=== PATIENT | male | born 1995 | race Caucasian/White ===

== ENCOUNTER 2023-02-19 11:49 | Emergency (ER) | payer OTHER, SELFPAY ==
--- NOTE | ~2023-02-19 | CT_ITS ---
EXAMINATION: CT brain wo con DATE: 02/19/2023 13:48 INDICATION: Recent head injury. Headache. Dizziness. TECHNIQUE: Computed tomography (CT) of the head was performed without intravenous contrast. The mA wa s adjusted according to patient size. Iterative reconstruction technique was employed. Exam dose: 68 1.00 mGy-cm total exam DLP. COMPARISON: None FINDINGS: No intracranial mass lesion or hemorrhage or cerebrovascular accident, midline shift or mas s effect. No subdural or epidural hematoma. Normal ventricular size. Normal doan-white matter differe ntiation. The mastoid air cells and included paranasal sinuses are normally developed and aerated. No fracture or bone destruction of the cranial vault. IMPRESSION: Negative Reviewed, dictated and finalized at [facility]. Reviewed, dictated and finalized at [facility]. IMPRESSION: Negative
--- NOTE | ~2023-02-19 | CT_ITS ---
EXAMINATION: CT cervical spine wo con DATE: 02/19/2023 13:48 INDICATION: Recent head injury. Headache. Dizziness. TECHNIQUE: Computed tomography (CT) of the cervical spine was performed without intravenous contrast. Automated exposure control and iterative reconstruction technique were employed. Exam dose: 490.84 mGy-cm total exam DLP. COMPARISON: None FINDINGS: C1 and C2 are normally aligned and the odontoid process is intact. Mild degenerative disc disease at C3-4. Moderate degenerative disc disease at C5-6 There is prominent uncovertebral joint spurring on the right at C3-4. No fracture or dislocation or locked facet or prevertebral soft tissue swelling. IMPRESSION: Mild cervical spondylosis; no fracture or dislocation or locked facet Reviewed, dictated and finalized at [facility]. Reviewed, dictated and finalized at [facility]. IMPRESSION: Mild cervical spondylosis; no fracture or dislocation or locked fa cet
[2023-02-19 11:53] VITALS: BP 126/89; PULSE 84; RESP 18; TEMP 36.3; O2SAT 99
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
[2023-02-19 14:51] VITALS: BP 120/74; PULSE 84; RESP 18; O2SAT 100
== END 2023-02-19 14:55 | disposition home or self-care (01) ==
PROVIDERS: Emergency Provider Physician Assistant; PCP Family Medicine
DX: S06.0X0A Concussion without loss of consciousness, initial encounter (principal); M47.812 Spondylosis without myelopathy or radiculopathy, cervical region; W51.XXXA Accidental striking against or bumped into by another person, initial encounter
CPT/HCPCS: 70450; 72125; 99284